=== PATIENT | female | born 1960 | race Caucasian/White ===

== ENCOUNTER → 2016-05-25 | Outpatient (CLI) | payer MEDICARE, MEDICAID ==
[~2016-05-25] MED LIST: AMIT1TAB79 PO; AMIT25TA9 PO; ASPI81TA81; AZIT250T3 PO; CLOP75TA PO; DIAZ10 PO; GABA300C5 PO; HYDR-3366 PO; METO25TA6 PO; NITR1SUB3 SL; PRED20 PO; SERT-132 PO; VENTAER INH; ZANT150T2 PO; ZOCO20TA PO; ZYRT10CA PO
[2016-05-25 10:52] LABS: BICARBONATE 27.7 MEQ/L (21.0-32.0); POTASSIUM 4.5 MEQ/L (3.5-5.1)
[2016-05-25 10:54] LABS: MICRO ALBUMIN RANDOM URINE RAW 7.3 MG/L (0.0-30.0)
== END ==
LOC: CLAB 09:52
PROVIDERS: ATTEND Family Medicine
DX: N17.9 Acute kidney failure, unspecified (principal); R74.8 Abnormal levels of other serum enzymes
CPT/HCPCS: 36415; 80048; 82043; 82977

== ENCOUNTER 2016-07-16 08:30 | Emergency (ER) | payer MEDICARE, MEDICAID ==
[~2016-07-16] VITALS: Ht 177.8 cm; Wt 66.0 kg
[~2016-07-16 08:30] MED LIST changes: -AMIT25TA9 PO
[2016-07-16 08:33] VITALS: BP 134/86; PULSE 108; RESP 22; TEMP 98.6; O2SAT 98
[2016-07-16 09:11] VITALS: PULSE 89; RESP 17; RESP 22; O2SAT 98
--- NOTE | 2016-07-16 09:14 | PD ---
HPI Chief Complaint: Respiratory Distress Time Seen by Provider: 08:47 Travel History International Travel<30 days: No Contact w/Intl Traveler<30days: No Traveled to known affect area: No History of Present Illness HPI The patient was seen and examined in the presence of the nurse. This patient complains of pain in her left upper back 4 days. No injury. It is not pleuritic. She has a chronic smoker's cough which is unchanged. Denies documented fever. She has not had any chest pain. Symptoms severity is moderate. No alleviating factors. PFSH Past Medical History Hx Anticoagulant Therapy: Yes (PLAVIX) Arthritis: Yes (OSTEOARTHRITIS) Blood Disorders: No Anxiety: Yes Depression: Yes Heart Rhythm Problems: No Cancer: No Cardiac Catheterization: Yes Cardiovascular Problems: Yes ([place] /QUAD[place] BYPASS) High Cholesterol: Yes Chest Pain: Yes Congestive Heart Failure: Yes COPD: Yes Diminished Hearing: No Endocrine: No Gastrointestinal Disorders: Yes (GERD) GERD: Yes Hypertension: Yes Kidney Stones: Yes (30 years ago) Musculoskeletal: Yes (OA) Neurologic: No Psychiatric: Yes Reproductive: No Respiratory: Yes (COPD) Migraines: Yes Myocardial Infarction: Yes (3) Ulcer: Yes (years ago) PNEUMOCCOCAL Vaccine (Year): 2 ?: Not Menopausal: Yes Tubal Ligation: Yes Past Surgical History Abdominal Surgery: Yes Cardiac Surgery: Yes (quadruple bypass 2002 iliac artery repaired) Cholecystectomy: Yes Coronary Artery Bypass Graft: Yes (X 4 IN 2002) Coronary Stent: Yes (ABDOMINAL STENT) Gynecologic Surgery: Yes Joint Replacement: No Other Surgery: Yes Social History Alcohol Use: No Tobacco Use: Yes (1PK/DAY FOR 35 YEARS) Substance Use: No Allergies-Medications (Allergen,Severity, Reaction): Coded Allergies: *MDRO Multi-Drug Resistant Organism (Unverified Adverse Reaction, Unknown , 07/16/16) MRSA 2004, 2009 & 2014 Reported Meds & Prescriptions Reported Meds & Active Scripts Active Valium (Diazepam) 10 Mg Tab 10 Mg PO BID PRN Fred (Hydrocodone-Acetaminophen) 10-325 Mg Tab 1 Tab PO TID PRN Sertraline (Sertraline HCl) 50 Mg Tab 50 Mg PO DAILY Zantac (Ranitidine HCl) 150 Mg Tab 150 Mg PO BID Ventolin Hfa 18 GM Inh (Albuterol Sulfate) 90 Mcg/Act Aer 2 Puff INH Q6H PRN Metoprolol Succinate ER 24 HR (Metoprolol Succinate) 25 Mg Tab 25 Mg PO DAILY Gabapentin 300 Mg Cap 300 Mg PO HS Elavil (Amitriptyline HCl) 25 Mg Tab 25 Mg PO HS Clopidogrel (Clopidogrel Bisulfate) 75 Mg Tab 75 Mg PO DAILY Zyrtec Allergy (Cetirizine HCl) 10 Mg Cap 10 Mg PO DAILY Zocor (Simvastatin) 20 Mg Tab 20 Mg PO HS Reported Nitroglycerin SL (Nitroglycerin) 0.4 Mg Subl 0.4 Mg SL DIRECTED PRN ONE TABLET UNDER THE TONGUE NEEDED FOR CHEST PAIN, MAY REPEAT EVERY FIVE MINUTES FOR A TOTAL OF 3 DOSES OR CALL 911 IF NO RELIEF Aspir-81 (Aspirin) 81 Mg Tabdr Review of Systems General / Constitutional: No: Fever Eyes: No: Visual changes HENT: No: Headaches Cardiovascular: No: Chest Pain or Discomfort Respiratory: Positive: Cough, No: Shortness of Breath Gastrointestinal: No: Abdominal Pain Genitourinary: No: Dysuria Musculoskeletal: Positive: Pain Skin: No Rash Neurologic: No: Weakness Psychiatric: No: Depression Endocrine: No: Polydipsia Hematologic/Lymphatic: No: Easy Bruising Physical Exam Narrative GENERAL: Well-nourished, well-developed patient in no apparent distress. SKIN: Focused skin assessment reveals no rash and nodules. Skin is Warm and dry. HEAD: Atraumatic. Normocephalic. EYES: Pupils equal and round. No scleral icterus. No injection or drainage. ENT: No nasal bleeding or discharge. Mucous membranes pink and moist. NECK: Trachea midline. No JVD. CARDIOVASCULAR: Regular rate and rhythm. No murmur appreciated. RESPIRATORY: No accessory muscle use. Clear to auscultation. Breath sounds equal bilaterally. GASTROINTESTINAL: Abdomen soft, non-tender, nondistended. Hepatic and splenic margins not palpable. MUSCULOSKELETAL: No obvious deformities. No clubbing. No cyanosis. No edema. No midline tenderness of the back. She has readily reproducible tenderness in the musculature along the proximal border of the left scapula. This does replicate her pain complaints. NEUROLOGICAL: Awake and alert. No obvious cranial nerve deficits. Motor grossly within normal limits. Normal speech. PSYCHIATRIC: Appropriate mood and affect; insight and judgment is a bit weak given her continued smoking despite bypass grafting and multiple stents. Data Data Last Documented VS Vital Signs Date Time Temp Pulse Resp B/P Pulse Ox O2 Delivery O2 Flow Rate FiO2 07/16/16 10:44 98.1 87 20 127/81 98 Room Air Orders Electrocardiogram (07/16/16 ) Electrocardiogram (07/16/16 09:04) Basic Metabolic Panel (Bmp) (07/16/16 09:04) Ckmb (Isoenzyme) Profile (07/16/16 09:04) Complete Blood Count With Diff (07/16/16 09:04) Troponin I (07/16/16 09:04) Chest, Single Ap (07/16/16 09:04) Ecg Monitoring (07/16/16 09:04) Iv Access Insert/Monitor (07/16/16 09:04) Oximetry (07/16/16 09:04) Sodium Chloride 0.9% Flush (Ns Flush) (07/16/16 09:15) CKMB (07/16/16 09:00) CKMB% (07/16/16 09:00) Labs Laboratory Tests Test 07/16/16 09:00 White Blood Count 7.0 TH/MM3 Red Blood Count 4.60 MIL/MM3 Hemoglobin 14.4 GM/DL Hematocrit 41.2 % Mean Corpuscular Volume 89.6 FL Mean Corpuscular Hemoglobin 31.2 PG Mean Corpuscular Hemoglobin 34.9 % Concent Red Cell Distribution Width 14.4 % Platelet Count 191 TH/MM3 Mean Platelet Volume 9.4 FL Neutrophils (%) (Auto) 77.7 % Lymphocytes (%) (Auto) 17.9 % Monocytes (%) (Auto) 3.7 % Eosinophils (%) (Auto) 0.4 % Basophils (%) (Auto) 0.3 % Neutrophils # (Auto) 5.5 TH/MM3 Lymphocytes # (Auto) 1.3 TH/MM3 Monocytes # (Auto) 0.3 TH/MM3 Eosinophils # (Auto) 0.0 TH/MM3 Basophils # (Auto) 0.0 TH/MM3 CBC Comment DIFF FINAL Differential Comment Sodium Level 138 MEQ/L Potassium Level 3.8 MEQ/L Chloride Level 104 MEQ/L Carbon Dioxide Level 24.9 MEQ/L Anion Gap 9 MEQ/L Blood Urea Nitrogen 17 MG/DL Creatinine 1.17 MG/DL Estimat Glomerular Filtration 48 ML/MIN Rate Random Glucose 107 MG/DL Calcium Level 9.2 MG/DL Total Creatine Kinase 351 U/L Creatine Kinase MB 4.8 NG/ML Creatine Kinase MB % 1.4 % Troponin I LESS THAN 0.02 NG/ML MDM Medical Decision Making Medical Screen Exam Complete: Yes Emergency Medical Condition: Yes Medical Record Reviewed: Yes Differential Diagnosis Rhomboid muscle strain, PE, pneumothorax, ACS Narrative Course I have reviewed the patient's electronic medical record. I reviewed her primary physician's last office evaluation which was June 01, 2016 IV placed CBC is normal Metabolic profile is normal CK is normal MB percent Troponin is normal I reviewed her EKG which shows sinus rhythm but no acute ST elevation Extended cardiac monitoring reveals sinus rhythm without ectopy I reviewed her chest x-ray which shows no acute finding Everything about this presentation points to a musculoskeletal cause of her pain. I believe it's her left rhomboid muscle. No indication for cardiac or pulmonary involvement. She has pain medication home. Recommend ice and rest and anti-inflammatories if she can tolerate them Diagnosis Primary Impression: Rhomboid muscle strain Qualified Code: S29.012A - Rhomboid muscle strain, initial encounter Additional Impression: Musculoskeletal pain Additional Instructions: The patient was advised to follow up with their physician and return if they worsen. Med/Other Pt SpecificInfo: Other Disposition: 01 DISCHARGE HOME Condition: Stable Jayy Ortega MD July 16, 2016 09:14
[2016-07-16] MEDS ORDERED: SODIUM CHLORIDE 0.9% FLUSH 10 ML FLUSH IVF PRN (09:15)
[2016-07-16 09:19] LABS: AUTOMATED NEUTROPHIL # 5.5 TH/MM3 (1.8-7.7); BASOPHIL % 0.3 % (0.0-2.0); EOSINOPHIL % 0.4 % (0.0-4.0); HEMATOCRIT 41.2 % (35.0-46.0); HEMO FLAGS DIFF FINAL; LYMPH % 17.9 % (9.0-44.0); LYMPHOCYTE # 1.3 TH/MM3 (1.0-4.8); MEAN CELL VOLUME 89.6 FL (80.0-100.0); MEAN CORPUSCULAR HEMOGLOBIN 31.2 PG (27.0-34.0); MEAN CORPUSCULAR HGB CONC 34.9 % (32.0-36.0); MONO % 3.7 % (0.0-8.0); NEUT % 77.7 % (16.0-70.0); PLATELET COUNT 191 TH/MM3 (150-450); RED CELL DISTRIBUTION WIDTH 14.4 % (11.6-17.2)
--- NOTE | 2016-07-16 09:20 | RADRPT ---
EXAM DATE/TIME: 07/16/2016 09:02 [facility] COMPARISON: CHEST SINGLE AP, February 24, 2015, 12:48. INDICATIONS : Chest pain MEDICAL HISTORY : Chronic obstructive pulmonary disease. SURGICAL HISTORY : CABG. ENCOUNTER: Initial ACUITY: 4 - 6 days PAIN SCORE: 10/10 LOCATION: Left chest FINDINGS: A single view of the chest demonstrates the lungs to be symmetrically aerated. Improved aeration in b oth bases when compared to the prior exam but there is still some atelectasis/scarring medially in kanchan th lung bases. Lungs are otherwise clear. Heart size is normal. Stable postsurgical changes with find ings of prior CABG. Osseous structures are intact. CONCLUSION: 1. Improved inspiratory effort with improved aeration in the lung bases. 2. Atelectasis/scarring medially in both lung bases. No confluent infiltrate. 3. Stable postsurgical changes with plain film findings characteristic of CABG. Benoit Polo MD on July 16, 2016 at 9:16 Board Certified Radiologist. This report was verified electronically.
[2016-07-16 09:42] LABS: ANION GAP 9 MEQ/L (5-15); BICARBONATE 24.9 MEQ/L (21.0-32.0); BLOOD UREA NITROGEN 17 MG/DL (7-18); CHLORIDE 104 MEQ/L (98-107); CREATINE KINASE 351 U/L (26-192); GLOMERULAR FILTRATION RATE 48 ML/MIN (>89); POTASSIUM 3.8 MEQ/L (3.5-5.1); SODIUM (NA) 138 MEQ/L (136-145)
[2016-07-16 09:55] LABS: CKMB 4.8 NG/ML (0.5-3.6)
[2016-07-16 10:44] VITALS: BP 127/81; PULSE 87; RESP 20; TEMP 98.1; O2SAT 98
[2016-07-16 11:35] VITALS: BP 122/81; TEMP 97.8
--- NOTE | 2016-07-17 22:03 | EKG ---
Date Performed: 07/16/2016 Time Performed: 08:50:09 PTAGE: 56 years EKG: ECTOPIC ATRIAL RHYTHM INFERIOR MYOCARDIAL INFARCTION ABNORMAL ECG PREVIOUS TRACING : 02/24/2015 23.52 Compared to prior tracing no significant change DOCTOR: Florencio Chowdhury Interpretating Date/Time 07/17/2016 22:01:38
[2016-07-29] MEDS ORDERED: HYDR-3366 PO (13:55)
[2016-07-29] MEDS ORDERED: DIAZ10 PO (13:55)
[2016-08-26] MEDS ORDERED: METO25TA6 PO (08:02)
[2016-08-26] MEDS ORDERED: AMIT25TA9 PO (08:02)
[2016-08-26] MEDS ORDERED: CLOP75TA PO (08:02)
[2016-08-27] MEDS ORDERED: HYDR-3366 PO (13:09)
[2016-08-31] MEDS ORDERED: ZOCO20TA PO (06:59)
[2016-09-02] MEDS ORDERED: DIAZ10 PO (09:19)
[2016-09-02] MEDS ORDERED: SALM50I INH (09:19)
== END 2016-07-16 11:35 | disposition home or self-care (01) ==
LOC: NEPC 08:30
DX: S29.012A Strain of muscle and tendon of back wall of thorax, initial encounter (principal); M79.1 Myalgia; R94.31 Abnormal electrocardiogram [ECG] [EKG]; J41.0 Simple chronic bronchitis; E78.00 Pure hypercholesterolemia, unspecified; I50.9 Heart failure, unspecified; J44.9 Chronic obstructive pulmonary disease, unspecified; I10 Essential (primary) hypertension; K21.9 Gastro-esophageal reflux disease without esophagitis; I25.2 Old myocardial infarction; F17.210 Nicotine dependence, cigarettes, uncomplicated; Z95.1 Presence of aortocoronary bypass graft; Z87.442 Personal history of urinary calculi
CPT/HCPCS: 71010; 80048; 82550; 82552; 84484; 85025; 93005; 99284

== ENCOUNTER 2016-12-11 15:13 | Emergency (ER) | payer MEDICARE, MEDICAID ==
[~2016-12-11] VITALS: Ht 177.8 cm; Wt 65.0 kg
[~2016-12-11 15:13] MED LIST changes: -AMIT1TAB79 PO; +AMIT25TA9 PO; -AZIT250T3 PO; +CYCL5TAB PO; -PRED20 PO; +SALM50I INH
[2016-12-11 15:16] VITALS: BP 197/108; PULSE 94; RESP 20; TEMP 97.4; O2SAT 98
[2016-12-11] MEDS ORDERED: ACETAMINOPHEN/HYDROcodone 325 MG/5 MG TAB PO ONE (16:30)
--- NOTE | 2016-12-11 16:30 | PD ---
HPI Chief Complaint: Fall Time Seen by Provider: 16:28 Travel History International Travel<30 days: No Contact w/Intl Traveler<30days: No Traveled to known affect area: No History of Present Illness HPI 56-year-old female presents to the emergency Department with complaint of right lower back/upper buttocks pain and right distal forearm/wrist pain after slipping on wet concrete, landing on her right buttocks, and sliding down about 5 concrete steps today at approximately 12 PM. She denies hitting her head or loss of consciousness. Denies neck pain. She takes Plavix. Denies chest pain , shortness of breath, abdominal pain, vomiting, blood in her urine or stool. Denies other extremity pain. Denies paresthesias, loss of sensation or decreased range of motion, decreased strength to all extremities. Denies encopresis, incontinence, saddle anesthesias. Has been ambulatory since after the fall. Has taken Westley for symptom management. Symptoms are moderate in severity. Has no other medical complaints. No other modifying factors or associated signs and symptoms. PFSH Past Medical History Hx Anticoagulant Therapy: Yes (PLAVIX) Arthritis: Yes (OSTEOARTHRITIS) Blood Disorders: No Anxiety: Yes Depression: Yes Heart Rhythm Problems: No Cancer: No Cardiac Catheterization: Yes Cardiovascular Problems: Yes ([place] /[place]) High Cholesterol: Yes Chest Pain: Yes Congestive Heart Failure: Yes COPD: Yes Diminished Hearing: No Endocrine: No Gastrointestinal Disorders: Yes (GERD) GERD: Yes Hypertension: Yes Kidney Stones: Yes (30 years ago) Musculoskeletal: Yes (OA) Neurologic: No Psychiatric: Yes Reproductive: No Respiratory: Yes (COPD) Migraines: Yes Myocardial Infarction: Yes (3) Ulcer: Yes (years ago) PNEUMOCCOCAL Vaccine (Year): 2 Menopausal: Yes Tubal Ligation: Yes Past Surgical History Abdominal Surgery: Yes Cardiac Surgery: Yes (quadruple bypass 2002 iliac artery repaired) Cholecystectomy: Yes Coronary Artery Bypass Graft: Yes (X 4 IN 2002) Coronary Stent: Yes (ABDOMINAL STENT) Gynecologic Surgery: Yes Joint Replacement: No Other Surgery: Yes Social History Alcohol Use: No Tobacco Use: Yes (1PK/DAY FOR 35 YEARS) Substance Use: No Allergies-Medications (Allergen,Severity, Reaction): Coded Allergies: *MDRO Multi-Drug Resistant Organism (Unverified Adverse Reaction, Unknown , 12/11/16) MRSA 2004, 2008 & 2013 Reported Meds & Prescriptions Reported Meds & Active Scripts Active Flexeril (Cyclobenzaprine HCl) 5 Mg Tab 5 Mg PO TID Serevent Diskus Inh (Salmeterol Xinafoate) 50 Mcg/Act Aero 50 Mcg INH BID Sertraline (Sertraline HCl) 50 Mg Tab 50 Mg PO DAILY Ventolin Hfa 18 GM Inh (Albuterol Sulfate) 90 Mcg/Act Aer 2 Puff INH Q6H PRN Valium (Diazepam) 10 Mg Tab 10 Mg PO BID PRN Westley (Hydrocodone-Acetaminophen) 10-325 Mg Tab 1 Tab PO TID PRN Nitroglycerin SL (Nitroglycerin) 0.4 Mg Subl 0.4 Mg SL DIRECTED PRN 1tab under tongue for chest pain. May repeat ONCE and call 911 if no relief. Gabapentin 300 Mg Cap 300 Mg PO HS Zocor (Simvastatin) 20 Mg Tab 20 Mg PO HS Metoprolol Succinate ER 24 HR (Metoprolol Succinate) 25 Mg Tab 25 Mg PO DAILY Amitriptyline (Amitriptyline HCl) 25 Mg Tab 25 Mg PO HS Clopidogrel (Clopidogrel Bisulfate) 75 Mg Tab 75 Mg PO DAILY Zantac (Ranitidine HCl) 150 Mg Tab 150 Mg PO BID Zyrtec Allergy (Cetirizine HCl) 10 Mg Cap 10 Mg PO DAILY Reported Aspir-81 (Aspirin) 81 Mg Tabdr Review of Systems Except as stated in HPI: all other systems reviewed are Neg Physical Exam Narrative GENERAL: Well-nourished, well-developed female patient, in no acute distress; afebrile, nontoxic-appearing SKIN: Warm and dry. HEAD: Atraumatic. Normocephalic. No facial droop noted. Tongue midline. EYES: Pupils equal and round at 3 mm with brisk reaction. No scleral icterus. No injection or drainage. EOMI. PERRLA. ENT: Mucosa pink and moist. No erythema or exudates. No uvular edema. No uvular , palatal, or tonsillar deviation. Airway patent. Nasal turbinates appear normal without nasal blood. EARS: Bilateral pinnae and external canals appear within normal limits. Bilateral tympanic membranes without erythema, dullness or perforation. NECK: Trachea midline. Moving freely. No midline tenderness on palpation of the cervical spine. Active rotation greater than 45 to the left and right. CARDIOVASCULAR: Regular rate and rhythm. No murmur appreciated. RESPIRATORY: No accessory muscle use. Breath sounds clear and equal bilaterally. No retractions or tachypnea. GASTROINTESTINAL: Abdomen soft, non-tender, nondistended. Positive bowel sounds. No hepato-splenomegaly, or palpable masses. No guarding. MUSCULOSKELETAL: Right wrist with edema and ecchymosis noted to the dorsal medial aspect; no obvious deformity; with tenderness on palpation; all fingers with full range of motion some equal and decreased top case assembler strength; fingers pink and warm and with less than 3 second cap refill. Right upper extremity supple and nontender. 2+ radial pulses sensory intact without erythema or edema. Bilateral lower extremities supple and non-tense with 2+ pedal pulses and sensory intact; with full range of motion and 5/5 strength. 2+ DTRs bilaterally. Active dorsiflexion and extension of bilateral feet. Bilateral straight leg raise is negative for low back pain. Ambulatory in room with normal gait. Sitting up in bed at 90. No obvious deformities. No clubbing. No cyanosis. No edema. BACK: No midline point tenderness on palpation of the lumbar spine. Small, stage I bruise noted to lower back/upper buttocks area, tenderness on palpation to the bruised area only. No obvious deformities. NEUROLOGICAL: Awake and alert. Oriented 3. No obvious cranial nerve deficits. Motor grossly within normal limits. Normal speech. No midline drift. Moves all extremities. 5/5 strength to all extremities. Sensory intact. PSYCHIATRIC: Appropriate mood and affect; insight and judgment normal. Data Data Last Documented VS Vital Signs Date Time Temp Pulse Resp B/P (MAP) Pulse Ox O2 Delivery O2 Flow Rate FiO2 12/11/16 17:26 82 18 166/97 (120) 96 Room Air 12/11/16 15:16 97.4 Orders Orders Forearm (2vws) (12/11/16 16:27) Acetamin-Hydrocod 325-5 Mg (Westley 5-325 (12/11/16 16:30) Splint Or Brace Apply/Monitor (12/11/16 17:02) Sling Cradle Arm (12/11/16 ) Ed Discharge Order (12/11/16 17:17) MDM Medical Decision Making Medical Screen Exam Complete: Yes Emergency Medical Condition: Yes Medical Record Reviewed: Yes Differential Diagnosis Fall, Contusion of buttocks, forearm fracture, wrist fracture, forearm contusion Narrative Course 56-year-old female with contusion to her right upper buttock/lower back and right forearm/wrist injury after slipping on a wet surface and falling onto her buttocks and sliding down approximately 5 steps. She is on Plavix. She denies hitting her head or loss of consciousness. Denies nausea, vomiting. On physical exam the patient is without raccoon eyes, villanueva signs, rhinorrhea, or hemotympanum. I do not suspect open or depressed skull fracture, and the patient has no signs of basilar skull fracture. [place] CT Head Injury Rule suggests a head CT is not necessary for this patient and clears the patient for head injury without imaging. Denies neck pain. [place] C-Spine Rule suggests the C-Spine can be cleared clinically of fracture, and imaging is not required. There is no midline point tenderness on palpation of the cervical spine. The patient is able to actively rotate the neck 45 left and right. The patient is sitting up in bed at 90. The patient is ambulatory. He has no midline tenderness on palpation of the lumbar spine. She has tenderness to her right lower lumbar area/upper buttocks area with there is a small bruise. Denies encopresis, incontinence, saddle anesthesias. Lortab ordered. Right wrist x- ray ordered. 1659: Right wrist x-ray concludes: Last 24 hours Impressions Radius/Ulna X-Ray 12/11/16 1627 Signed Impressions: Service Date/Time: Sunday, December 11, 2016 16:49 - CONCLUSION: Nondisplaced fracture distal radius.. Kody Friedman MD FACR X-ray findings discussed with patient. Sugar tong splint applied. Arm Sling provided for support. Patient says she has plenty of pain medication at home and does not need a refill. Instructed to follow-up with orthopedics within one week. MInstructed patient to follow up with primary care provider. Patient verbalizes understanding and agreement with treatment plan. Patient is medically cleared and stable for discharge. Discussed reasons to return to the emergency department. Patient agrees with treatment plan. The patients vital signs are stable and the patient is stable for outpatient follow-up and treatment. Patient discharged home, stable and in no acute distress. Diagnosis Primary Impression: Distal radius fracture, right Qualified Codes: S52.501A - Unspecified fracture of the lower end of right radius, initial encounter for closed fracture Referrals: Orthopedist Primary Care Physician Patient Instructions: Fall Prevention (ED), General Instructions, Wrist Fracture in Adults (ED) Departure Forms: Tests/Procedures, Work Release Special Instructions: Unable to work until cleared by primary care provider or orthopedics Additional Instructions: Tylenol as directed and as needed to reduce pain Rest, ice, compress, and elevate extremity to decrease pain and inflammation Wrist Splint for support; do not remove until you follow up with orthopedic Avoid aggravating activity; increase activity as tolerated Follow-up with primary care provider Follow-up with orthopedics Return to the emergency department immediately with worsening symptoms Med/Other Pt SpecificInfo: No Change to Meds, No Meds Exist/No RX given Disposition: 01 DISCHARGE HOME Condition: Stable Lizeth Davis Dec 11, 2016 16:30
--- NOTE | 2016-12-11 16:50 | RADRPT ---
EXAM DATE/TIME: 12/11/2016 16:49 [facility] COMPARISON: No previous studies available for comparison. INDICATIONS : Right forearm pain post fall down stairs today MEDICAL HISTORY : None. SURGICAL HISTORY : None. ENCOUNTER: Initial ACUITY: 1 day PAIN SCORE: 10/10 LOCATION: Right distal forearm FINDINGS: Nondisplaced fracture distal radius. Carpus intact. CONCLUSION: Nondisplaced fracture distal radius.. Kody Friedman MD FACR on December 11, 2016 at 16:48 Board Certified Radiologist. This report was verified electronically.
[2016-12-11 17:26] VITALS: BP 166/97; PULSE 82; RESP 18; O2SAT 96
== END 2016-12-11 17:36 | disposition home or self-care (01) ==
LOC: NEPK 15:13
DX: S52.501A Unspecified fracture of the lower end of right radius, initial encounter for closed fracture (principal); M54.5 Low back pain; W01.0XXA Fall on same level from slipping, tripping and stumbling without subsequent striking against object, initial encounter; F41.9 Anxiety disorder, unspecified; F32.9 Major depressive disorder, single episode, unspecified; E78.5 Hyperlipidemia, unspecified; J44.9 Chronic obstructive pulmonary disease, unspecified; I50.9 Heart failure, unspecified; Z79.01 Long term (current) use of anticoagulants; I25.2 Old myocardial infarction; F17.200 Nicotine dependence, unspecified, uncomplicated; Z79.899 Other long term (current) drug therapy
CPT/HCPCS: 29125; 73090

== ENCOUNTER → 2017-07-30 | Outpatient (CLI) | payer MEDICARE, MEDICAID ==
[~2017-07-30] MED LIST changes: +METO1TAB42 PO; -METO25TA6 PO; +SERT-129 PO; -SERT-132 PO
[2017-07-30 11:34] LABS: ALBUMIN 3.7 GM/DL (3.4-5.0); AST (GOT) 12 U/L (15-37); BICARBONATE 23.8 MEQ/L (21.0-32.0); BLOOD UREA NITROGEN 11 MG/DL (7-18); CALCIUM 9.9 MG/DL (8.5-10.1); CHLORIDE 106 MEQ/L (98-107); GLOMERULAR FILTRATION RATE 58 ML/MIN (>89); GLUCOSE,FASTING 103 MG/DL (74-99); SODIUM (NA) 139 MEQ/L (136-145)
[2017-07-30 11:35] LABS: ALT (GPT) 15 U/L (10-53); CHOLESTEROL 183 MG/DL (120-200)
[2017-07-30 11:38] LABS: ALKALINE PHOSPHATASE 125 U/L (45-117); CHOLESTEROL/ HDL RATIO 4.46 RATIO; LDL CHOLESTEROL 120 MG/DL (0-99); TOTAL BILIRUBIN ADULT 0.5 MG/DL (0.2-1.0); TOTAL PROTEIN 7.7 GM/DL (6.4-8.2); TRIGLYCERIDES 112 MG/DL (42-150)
[2017-07-30 16:36] LABS: HEMOGLOBIN A1C 5.7 % (4.3-6.0)
== END ==
LOC: CLAB 10:14
PROVIDERS: ATTEND Family Medicine
DX: I10 Essential (primary) hypertension (principal); R73.03 Prediabetes; Z12.11 Encounter for screening for malignant neoplasm of colon
CPT/HCPCS: 36415; 80053; 80061; 83036